=== PATIENT | male | born 1940 | race Caucasian/White ===

== ENCOUNTER 2020-04-08 16:58 | Inpatient (IN) | payer MEDICARE, OTHER ==
[~2020-04-08] VITALS: Ht 185.4 cm; Wt 102.4 kg
[~2020-04-08 16:58] MED LIST: BUME1 PO; FURO40 PO; LANS30EC PO; LISI5 PO; MELO7.5 PO; NEBI5 PO; OXYACE5T PO; POTCHL10ER PO; ROSU10TA PO; SENN187 PO; SENNA-S PO; TRIHYD5075 PO; [UNRECOGNIZED DRUG - REMARK]
[2020-04-08 17:43] LABS: BASOPHILS ABSOLUTE AUTO 0.03 K/mm3 (0.00-0.23); BASOPHILS PERCENT AUTO 0 % (0-2); EOSINOPHILS PERCENT AUTO 0 % (0-6); Hematocrit 51.5 % (37.0-53.0); Hemoglobin 16.5 g/dL (13.5-17.5); IMMATURE GRAN ABSOLUTE AUTO 0.22 K/mm3 (0.00-0.10); IMMATURE GRAN PERCENT AUTO 1 % (0-1); LYMPHOCYTES ABSOLUTE AUTO 0.27 K/mm3 (0.84-5.20); LYMPHOCYTES PERCENT AUTO 1 % (21-46); MONOCYTES ABSOLUTE AUTO 0.97 K/mm3 (0.16-1.47); MONOCYTES PERCENT AUTO 5 % (4-13); Mean Corpuscular HGB 28.3 pg (26.0-34.0); Mean Corpuscular Volume 88 fL (80-100); Mean Platelet Volume 12.8 fL (9.1-12.4); NEUTROPHILS ABSOLUTE AUTO 19.04 K/mm3 (1.96-9.15); NEUTROPHILS PERCENT AUTO 93 % (41-73); RDW Coefficient Variation 16.2 % (11.7-14.2); Red Blood Cell Count 5.84 M/mm3 (4.30-5.90); White Blood Cell Count 20.53 K/mm3 (4.00-11.30)
[2020-04-08 18:02] LABS: Platelet Count 78 K/mm3 (150-400)
[2020-04-08 18:06] LABS: International Normalized Ratio 1.11; Prothrombin Time Results 11.8 Sec (9.7-11.5)
[2020-04-08 18:11] LABS: Alanine Aminotransfer (ALT/SGP 507 U/L (12-78); Albumin, Blood 2.8 g/dL (3.4-5.0); Albumin/Globulin Ratio 0.7 (0.8-1.8); Alk Phos 417 U/L (50-136); Anion Gap 5 mmol/L (6-16); Aspartate Aminotrans (AST/SGOT 201 U/L (12-37); Bilirubin, Total 8.1 mg/dL (0.1-1.0); Blood Urea Nitrogen 49 mg/dL (8-24); CO2, Blood 39 mmol/L (21-32); Calcium, Blood 9.3 mg/dL (8.5-10.1); Chloride, Blood 96 mmol/L (98-108); Creatinine, Blood 1.09 mg/dL (0.60-1.20); Globulin, Blood 4.1 g/dL (2.2-4.0); Glomerular Filtration Rate >60 (60-); Glucose, Blood 171 mg/dL (70-99); Potassium, Blood 3.8 mmol/L (3.5-5.5); Sodium, Blood 140 mmol/L (136-145); Total Protein, Blood 6.9 g/dL (6.4-8.2); Troponin I 0.152 ng/mL (0.000-0.040)
[2020-04-08] MEDS ORDERED: CARVEDILOL12.5 MG PO (19:55)
[2020-04-08] MEDS ORDERED: HYDROCODONE-AC1 EAC1 PO (19:55)
[2020-04-08] MEDS ORDERED: GABA300 PO (20:00)
[2020-04-08] MEDS ORDERED: PANT20 PO (20:00)
[2020-04-08 20:19] LABS: PCO2 Arterial 57.6 mmHg (35-45); pH Blood Arterial 7.49 (7.35-7.45)
[2020-04-08 20:20] LABS: PO2 Arterial 48.4 mmHg (80-100)
--- NOTE | 2020-04-09 00:15 | NUR ---
PT ARRIVAL TO PCU 4 Pt arrived at 2311 via stretcher and required slide transfer. VSS. LLQ colostomy. urinal used at bedside. Dyspnea with standing at bedside during void. Tele showing afib in 60's. BLE edema present. Pt alert and oriented, speaking in full sentences, mildly labored breatihng at rest. Tachypneic. 2L oxygen upon arrival, saturations at 84% - NC increased to 4L with saturations at 92%. See admission assessment for detailed systems assessment. Consult for dr. blank called, to see pt today.
--- NOTE | 2020-04-09 02:15 | NUR ---
RT at bedside setting up CPAP.
--- NOTE | 2020-04-09 05:47 | NUR ---
Shift Summary Pt admitted this shift with resp failure. 4L NC maintain oxygen saturations 92-96%. VSS. Voiding independantly at edge of bed. Able to stand at bedside with assistance. Calls appropriately, alert and oriented. No confusion noted this shift. No changes to oxygen demand since admission. CPAP worn for approx 4 hours while asleep. Able to take pills whole with water. no dyspnea noted with eating. Echo planned for this AM. Dr. Hahn consulted. LLQ colostomy. No acute concerns overnight. Will continue to monitor.
[2020-04-09 06:00] LABS: BASOPHILS ABSOLUTE AUTO 0.03 K/mm3 (0.00-0.23); BASOPHILS PERCENT AUTO 0 % (0-2); EOSINOPHILS PERCENT AUTO 0 % (0-6); Hematocrit 50.4 % (37.0-53.0); Hemoglobin 16.2 g/dL (13.5-17.5); IMMATURE GRAN ABSOLUTE AUTO 0.16 K/mm3 (0.00-0.10); IMMATURE GRAN PERCENT AUTO 1 % (0-1); LYMPHOCYTES ABSOLUTE AUTO 0.33 K/mm3 (0.84-5.20); LYMPHOCYTES PERCENT AUTO 2 % (21-46); MONOCYTES ABSOLUTE AUTO 0.82 K/mm3 (0.16-1.47); MONOCYTES PERCENT AUTO 5 % (4-13); Mean Corpuscular HGB 28.8 pg (26.0-34.0); Mean Corpuscular HGB Conc 32.1 g/dL (31.5-36.5); Mean Corpuscular Volume 90 fL (80-100); NEUTROPHILS ABSOLUTE AUTO 16.73 K/mm3 (1.96-9.15); NEUTROPHILS PERCENT AUTO 93 % (41-73); Platelet Count 64 K/mm3 (150-400); RDW Coefficient Variation 16.4 % (11.7-14.2); RDW Standard Deviation 53.2 fL (35.1-46.3); Red Blood Cell Count 5.63 M/mm3 (4.30-5.90); White Blood Cell Count 18.07 K/mm3 (4.00-11.30)
[2020-04-09 06:14] LABS: International Normalized Ratio 1.08; Prothrombin Time Results 11.5 Sec (9.7-11.5)
[2020-04-09 06:30] LABS: Alanine Aminotransfer (ALT/SGP 461 U/L (12-78); Albumin, Blood 2.6 g/dL (3.4-5.0); Albumin/Globulin Ratio 0.7 (0.8-1.8); Alk Phos 372 U/L (50-136); Anion Gap 6 mmol/L (6-16); Aspartate Aminotrans (AST/SGOT 169 U/L (12-37); Bilirubin, Total 7.8 mg/dL (0.1-1.0); Blood Urea Nitrogen 41 mg/dL (8-24); CO2, Blood 40 mmol/L (21-32); Calcium, Blood 8.9 mg/dL (8.5-10.1); Chloride, Blood 96 mmol/L (98-108); Creatinine, Blood 1.05 mg/dL (0.60-1.20); Globulin, Blood 3.6 g/dL (2.2-4.0); Glomerular Filtration Rate >60 (60-); Glucose, Blood 151 mg/dL (70-99); Magnesium, Blood 2.8 mg/dL (1.6-2.4); Potassium, Blood 2.7 mmol/L (3.5-5.5); Sodium, Blood 142 mmol/L (136-145); Total Protein, Blood 6.2 g/dL (6.4-8.2); Troponin I 0.123 ng/mL (0.000-0.040)
--- NOTE | 2020-04-09 09:00 | NUR ---
Echocardiogram in progress at this time. Dr. Garcia was here, but said to call when the echo is completed to let him know when he can come and talk with the patient.
--- NOTE | 2020-04-09 10:11 | NUR ---
Echocardiogram completed.
[2020-04-09 14:32] LABS: Alpha Feto Protein, Tumor Mkr 1.8 ng/mL (0.0-8.0)
[2020-04-09 14:49] LABS: Cancer Antigen 19-9 5487.4 U/mL (2.0-37.0); Carcinoembryonic Antigen 1785.8 ng/mL (0.0-3.0)
--- NOTE | 2020-04-09 15:02 | NUR ---
Supportive therapeutic visit this afternoon. Pt resting in bed and is A&O. Pt denies pain and nausea at this time. Pt reports significant anxiety due to findings. Pt reports speaking with his but would like Dr Hahn to call and speak with . Instructed Pt request will be relayed to Dr Hahn. Offered therapeutic listening with Pt somewhat withdrawn. Pt briefly discusses some likes such as watching the [employer] channel and NASCAR. Educated Pt on distraction techniques to help manage anxiety. RT Mary in to offer breathing treatment. Pt agreeable to continued visits from Palliative Care. Spoke with Bedside RN Betzy and discussed case. CT guided biopsy planned for tomorrow. Palliative Care will remain available.
--- NOTE | 2020-04-09 17:25 | NUR ---
The pt is sitting on the side of the bed, feet on the floor, eating his dinner. States this will be enough food for him. Vital signs taken, and noted. The pt has no complaints at this time. He was given his coreg. Will wait for administration of lasix until he has finished eating. Occasional productive cough noted. Spo2 93 % while eating on 6 l/min O2 delivery.
--- NOTE | 2020-04-09 17:54 | NUR ---
SUMMARY The pt has been mostly resting in bed today, with brief times of sitting on the side of the bed. He was seen by Dr. Garcia and Dr. Hahn today. Plan is for ongoing tests tomorrow. The pt seems withdrawn, grumpy, and somewhat apathetic about his diagnosis, treatment, and care during the day.
[2020-04-10 04:42] LABS: BASOPHILS ABSOLUTE AUTO 0.03 K/mm3 (0.00-0.23); BASOPHILS PERCENT AUTO 0 % (0-2); EOSINOPHILS PERCENT AUTO 0 % (0-6); Hematocrit 49.2 % (37.0-53.0); Hemoglobin 15.9 g/dL (13.5-17.5); IMMATURE GRAN ABSOLUTE AUTO 0.17 K/mm3 (0.00-0.10); IMMATURE GRAN PERCENT AUTO 1 % (0-1); LYMPHOCYTES ABSOLUTE AUTO 0.29 K/mm3 (0.84-5.20); LYMPHOCYTES PERCENT AUTO 2 % (21-46); MONOCYTES ABSOLUTE AUTO 0.81 K/mm3 (0.16-1.47); MONOCYTES PERCENT AUTO 5 % (4-13); Mean Corpuscular HGB 28.9 pg (26.0-34.0); Mean Corpuscular HGB Conc 32.3 g/dL (31.5-36.5); Mean Corpuscular Volume 90 fL (80-100); NEUTROPHILS ABSOLUTE AUTO 16.15 K/mm3 (1.96-9.15); NEUTROPHILS PERCENT AUTO 93 % (41-73); Platelet Count 64 K/mm3 (150-400); RDW Coefficient Variation 16.6 % (11.7-14.2); RDW Standard Deviation 53.2 fL (35.1-46.3); White Blood Cell Count 17.45 K/mm3 (4.00-11.30)
[2020-04-10 04:51] LABS: Mean Platelet Volume 12.9 fL (9.1-12.4)
[2020-04-10 05:01] LABS: Alanine Aminotransfer (ALT/SGP 410 U/L (12-78); Albumin, Blood 2.4 g/dL (3.4-5.0); Albumin/Globulin Ratio 0.7 (0.8-1.8); Alk Phos 347 U/L (50-136); Aspartate Aminotrans (AST/SGOT 141 U/L (12-37); Bilirubin, Total 8.1 mg/dL (0.1-1.0); Blood Urea Nitrogen 40 mg/dL (8-24); Bun/Creatinine Ratio 38.5 (12.0-20.0); Calcium, Blood 8.8 mg/dL (8.5-10.1); Chloride, Blood 96 mmol/L (98-108); Creatinine, Blood 1.04 mg/dL (0.60-1.20); Globulin, Blood 3.5 g/dL (2.2-4.0); Glomerular Filtration Rate >60 (60-); Glucose, Blood 149 mg/dL (70-99); Potassium, Blood 2.6 mmol/L (3.5-5.5); Sodium, Blood 145 mmol/L (136-145); Total Protein, Blood 5.9 g/dL (6.4-8.2)
[2020-04-10 05:03] LABS: International Normalized Ratio 1.09; Prothrombin Time Results 11.6 Sec (9.7-11.5)
[2020-04-10 05:39] LABS: Anion Gap Unable to Calculate mmol/L (6-16); CO2, Blood >45 mmol/L (21-32)
--- NOTE | 2020-04-10 05:49 | NUR ---
SHIFT SUMMARY Pt able to sleep approx 7hrs this shift, fatigued upon initial assessment but fully alert and oriented. Withdrawn and appeared downcast. takes pills whole with water one at a time. VSS throughout shift, no acute declines to note. Pt mentation remains unchanged from initial assessment. See shift assessment for detailed systems assessment. Pt with critically high Co2 at >45 this shift, called to Provider and awaiting call back at this time. K+ also 2.6 this AM, awaiting call back from provider to relay lab results. No call back at this time. Pt with colostomy to [facility], managed by staff this shift. Plan is for CT guided liver bx and head CT this shift. Pt aware of plan of care.
--- NOTE | 2020-04-10 08:00 | NUR ---
PT LAYING IN BED AWAKE A/OX3, FLAT AFFECT, DENIES PAIN AT THIS TIME, LUNGS ARE CLEAR IN UPPER VIVAR, COURSE, CRACKLES OCC WHEEZE IN BASES, RESP EVEN AND UNLABORED, NO COUGH NOTED, HRIRR, TELE IN PLACE RUNNING AFIB PER MONITOR, SEE STRIP, NO EDEMA NOTED, PPP+1, CAP REFILL <3SEC, VS STABLE, AFEBRILE, IV SITE IS CLEAR AND PATENT, BTX4, ABD FLAT SOFT NONTENDER, OSTOMY NOTED TO LUQ, PT TAKES CARE OF IT HIMSELF, VOIDS VIA URINAL, SKIN C/W/D, NAFISA, CARLOS MANUEL, DONA, CALL LIGHT IN REACH, WILL BE HAVING A CT GUIDED LIVER BIOPSY TODAY, WILL KEEP HIM NPO, CALL LIGHT IN REACH.
[2020-04-10 10:52] LABS: Bilirubin, Direct 7.5 mg/dL (0.0-0.3); Bilirubin, Total 9.5 mg/dL (0.1-1.0)
--- NOTE | 2020-04-10 11:10 | NUR ---
PT LEFT FOR CT PROCEDURE VIA GURNEY, HE IS MEDIAL STATUS AND WILL BE TRANSFERED TO [facility] FROM CT, REPORT WAS GIVEN TO ROSCOE FELIZ. ALL BELONGINGS WERE TAKEN TO NEW ROOM.
--- NOTE | 2020-04-10 12:10 | NUR ---
PATIENT ARRIVED FROM CT SCAN/PCU AT 1150, TRANSFERRED TO BED WITHOUT INCIDENT. DENIES PAIN. HAS BAND AID COVERING PUNCTURE SITE ON RUQ FROM LIVER BIOPSY, NO BLEEDING OR HEMATOMA NOTED. ON O2 @ 5 L/MIN NC, RR 24-28 AND SHALLOW, O2 SAT 90-92%. PLACED ON MECHANICS HANDYMAN, BOX VERIFIED WITH PCU INSTRUMENT ASSEMBLY SUPERVISOR, IS IN AFIB WITH RATE OF 92. HE IS IRRITABLE, DOES NOT LIKE TO BE FUSSED OVER. REINFORCED EDUCATION TRUCK GUARD LIGHT USE, FALL PREVENTION, PRESSURE ULCER PREVENTION, AND PAIN MANAGEMENT.
--- NOTE | 2020-04-10 15:10 | NUR ---
SPOKE TO PATIENT'S BY PHONE, GAVE UPDATE ON PT LOCATION SINCE TRANSFER FROM PCU AND CONDITION. REQUESTED THAT SHE BRING HEARING AID BATTERIES FOR PT AND HIS CELL PHONE WITH LIVESTOCK HANDLER AND GAVE DIRECTIONS ON HOW TO DROP ITEMS OFF.
--- NOTE | 2020-04-10 18:44 | NUR ---
SHIFT SUMMARY: PT IRRITABLE AND SLIGHTLY ANXIOUS. WENT FOR NON CONTRAST MRI OF ABDOMEN. DENIES PAIN, BUT IS CLEARLY UNCOMFORTABLE. O2 @ 5 L/MIN NC, HUMIDIFIED, OSHEA. COLOSTOMY WITH BROWN STOOL AND GAS IN BAG. TRANSFERRED FROM [facility] TO BED WITH FWW AND SBA. POOR APPETITE, IS TOLERATING PO INTAKE, DENIES N/V. USING URINAL WITH ASSISTANCE.
[2020-04-11 08:34] LABS: Hemoglobin 15.7 g/dL (13.5-17.5); Mean Corpuscular HGB 28.8 pg (26.0-34.0); Mean Corpuscular HGB Conc 32.7 g/dL (31.5-36.5); Mean Corpuscular Volume 88 fL (80-100); Platelet Count 68 K/mm3 (150-400); RDW Coefficient Variation 17.1 % (11.7-14.2); RDW Standard Deviation 53.1 fL (35.1-46.3); Red Blood Cell Count 5.45 M/mm3 (4.30-5.90); White Blood Cell Count 18.21 K/mm3 (4.00-11.30)
[2020-04-11 08:41] LABS: Mean Platelet Volume 13.7 fL (9.1-12.4)
[2020-04-11 08:58] LABS: Alanine Aminotransfer (ALT/SGP 404 U/L (12-78); Albumin, Blood 2.4 g/dL (3.4-5.0); Albumin/Globulin Ratio 0.7 (0.8-1.8); Alk Phos 359 U/L (50-136); Anion Gap 6 mmol/L (6-16); Aspartate Aminotrans (AST/SGOT 157 U/L (12-37); Bilirubin, Total 11.3 mg/dL (0.1-1.0); Blood Urea Nitrogen 44 mg/dL (8-24); Bun/Creatinine Ratio 43.1 (12.0-20.0); CO2, Blood 41 mmol/L (21-32); Calcium, Blood 9.1 mg/dL (8.5-10.1); Chloride, Blood 94 mmol/L (98-108); Creatinine, Blood 1.02 mg/dL (0.60-1.20); Globulin, Blood 3.5 g/dL (2.2-4.0); Glomerular Filtration Rate >60 (60-); Glucose, Blood 153 mg/dL (70-99); Potassium, Blood 3.3 mmol/L (3.5-5.5); Sodium, Blood 141 mmol/L (136-145); Total Protein, Blood 5.9 g/dL (6.4-8.2)
--- NOTE | 2020-04-11 18:22 | NUR ---
SHIFT SUMMARY PT AXO, COOPERATIVE WITH CARE THOUGH WITHDRAWN. WHEN ASKED HOW HE IS FEELING HE JUST SHRUGS HIS SHOULDERS. FLAT AFFECT. VSS. PT 96% ON 6L, TITRATED TO 5L. DENIES PAIN. UP TO RECLINER THROUGHOUT THE DAY AND SLEEPING OFF AND ON. PT DENIES NEEDS THROUGHOUT THE DAY. [facility] [employer] CNA HELPED PT TO "BURP" COLOSTOMY BAG WHICH FILLED WITH GAS. BED IN LOW POSITION, CALL LIGHT WITHIN REACH. THIS NURSE CALLED PALLIATIVE CARE WHO WILL ASSESS PATIENT TOMORROW. NO OTHER CHANGES THIS SHIFT.
--- NOTE | 2020-04-12 02:10 | NUR ---
LATE PULLER MACHINE SUMMARY FOR 04/10 NIGHTSHIFT Patient continues to be withdawn and appears depressed. Not interested in discussing concerns about evolving health issues. minimal complaints of discomfort. Calls appropriately, OOB with one assist to bathroom. Urine extremely dark. (cola colored) Stool in colostomy was very pasty..Abd distended and firm with tympanic bowel sounds X4. Patient began to warm to staff in AM after considerable gentle emotional support.
[2020-04-12 05:10] LABS: BASOPHILS ABSOLUTE AUTO 0.03 K/mm3 (0.00-0.23); BASOPHILS PERCENT AUTO 0 % (0-2); EOSINOPHILS PERCENT AUTO 0 % (0-6); Hematocrit 46.1 % (37.0-53.0); Hemoglobin 15.3 g/dL (13.5-17.5); IMMATURE GRAN PERCENT AUTO 1 % (0-1); LYMPHOCYTES PERCENT AUTO 1 % (21-46); MONOCYTES ABSOLUTE AUTO 0.92 K/mm3 (0.16-1.47); MONOCYTES PERCENT AUTO 6 % (4-13); Mean Corpuscular HGB 29.2 pg (26.0-34.0); Mean Corpuscular HGB Conc 33.2 g/dL (31.5-36.5); Mean Corpuscular Volume 88 fL (80-100); NEUTROPHILS ABSOLUTE AUTO 15.48 K/mm3 (1.96-9.15); NEUTROPHILS PERCENT AUTO 92 % (41-73); Platelet Count 60 K/mm3 (150-400); RDW Coefficient Variation 17.1 % (11.7-14.2); RDW Standard Deviation 53.8 fL (35.1-46.3); Red Blood Cell Count 5.24 M/mm3 (4.30-5.90); White Blood Cell Count 16.83 K/mm3 (4.00-11.30)
[2020-04-12 05:14] LABS: Mean Platelet Volume 12.5 fL (9.1-12.4)
[2020-04-12 05:32] LABS: Alanine Aminotransfer (ALT/SGP 379 U/L (12-78); Albumin, Blood 2.2 g/dL (3.4-5.0); Albumin/Globulin Ratio 0.7 (0.8-1.8); Alk Phos 326 U/L (50-136); Anion Gap 4 mmol/L (6-16); Aspartate Aminotrans (AST/SGOT 158 U/L (12-37); Bilirubin, Total 11.7 mg/dL (0.1-1.0); Blood Urea Nitrogen 49 mg/dL (8-24); Bun/Creatinine Ratio 46.7 (12.0-20.0); CO2, Blood 42 mmol/L (21-32); Calcium, Blood 8.7 mg/dL (8.5-10.1); Chloride, Blood 96 mmol/L (98-108); Creatinine, Blood 1.05 mg/dL (0.60-1.20); Globulin, Blood 3.3 g/dL (2.2-4.0); Glomerular Filtration Rate >60 (60-); Glucose, Blood 162 mg/dL (70-99); Potassium, Blood 3.3 mmol/L (3.5-5.5); Sodium, Blood 142 mmol/L (136-145); Total Protein, Blood 5.5 g/dL (6.4-8.2)
--- NOTE | 2020-04-12 08:59 | NUR ---
PT HAD A CARTON OF CHOCOLATE MILK ON HIS TRAY TABLE FROM THE NIGHT BEFORE. NURSE PICKED IT UP TO THROW IT AWAY AND PATIENT DEMANDED IT BACK, OPENED AND DRANK IT DEPITE NURSE EDUCATING PATIENT ABOUT RISKS OF DRINKING MILK THAT HAS BEEN SITTING OUT ALL NIGHT AT ROOM TEMP. PT UPSET WITH MORNING MEDICATIONS, SEE EMAR. THIS NURSE EDUCATED PT THAT HE WAS MEDICATED THIS MORNING AT 0724 WITH HIS PROTONIX. THE MEDICATION THAT I WAS GIVING WAS HIS COREG. . THIS NURSE LET PATIENT DECIDE IF HE WANTED TO TAKE IT OR NOT. PT AGREED TO TAKE THE MEDICATION. HOWEVER, PT CLEARLY UPSET WITH NURSE IN ROOM. THIS NURSE LEFT ROOM TO LET PATIENT HAVE A BREAK. THIS NURSE CALLED PALLIATIVE CARE, NO ANSWER
--- NOTE | 2020-04-12 12:07 | NUR ---
Clinical Visit: Pt is alert, oriented, agitated. He is annoyed during my visit in the room. He reports that he just wants to go home. Attempted to speak to him about his serious illness and planning in advance. Reviewed code status, he states that he has had CPR in the past. He refuses to speak more about code status, stating again that he wants his and he wants to go home. Call placed to Savita. She states that his behavior is consistent with how he is at home. She reports that it is "just like him" to refuse to answer serious questions regarding his health and that they have always made decisions together. She is willing to come in to the hospital today so that they can have a discussion. Call down to tent to arrange admission into the hospital for advanced care planning. Updated nurse. Savita will ask for palliative care when she arrives.
--- NOTE | 2020-04-12 16:00 | NUR ---
is at bedside. Condition briefly covered, but she is requesting to speak with the hospitalist. Call to Dr. Garcia to notify. He will come to the room.
--- NOTE | 2020-04-12 18:22 | NUR ---
SHIFT SUMMARY PT AXO TO SELF, FOLLOW DIRECTIONS AND SURROUNDINGS THOUGH FORGETFUL AND IRRITABLE. PT BECAME AGGITATED WITH NURSE EVERY TIME NURSE WAS IN ROOM. PALLIATIVE CARE IN ROOM, SEE NOTE. PT CODE STATUS NOW DNR, BAND IN PLACE. AFIB ON TELE. PT'S SPOUSE IN ROOM THIS SHIFT TO DISCUSS PLAN WITH DR. DRIVER. PT LESS IRRITABLE AFTER SPOUSE VISIT. BED IN LOW POSITION, CALL LIGHT WITHIN REACH. NO OTHER CHANGES THIS SHIFT. PT EXTREMELY EAGER TO BE DISCHARGED HOME. PT 92% ON 5L AT THIS TIME.
[2020-04-13 04:55] LABS: BASOPHILS ABSOLUTE AUTO 0.03 K/mm3 (0.00-0.23); BASOPHILS PERCENT AUTO 0 % (0-2); EOSINOPHILS PERCENT AUTO 0 % (0-6); Hematocrit 46.6 % (37.0-53.0); Hemoglobin 15.3 g/dL (13.5-17.5); IMMATURE GRAN ABSOLUTE AUTO 0.23 K/mm3 (0.00-0.10); IMMATURE GRAN PERCENT AUTO 1 % (0-1); LYMPHOCYTES ABSOLUTE AUTO 0.23 K/mm3 (0.84-5.20); LYMPHOCYTES PERCENT AUTO 1 % (21-46); MONOCYTES ABSOLUTE AUTO 0.97 K/mm3 (0.16-1.47); MONOCYTES PERCENT AUTO 6 % (4-13); Mean Corpuscular HGB 28.4 pg (26.0-34.0); Mean Corpuscular HGB Conc 32.8 g/dL (31.5-36.5); Mean Corpuscular Volume 87 fL (80-100); NEUTROPHILS ABSOLUTE AUTO 15.51 K/mm3 (1.96-9.15); NEUTROPHILS PERCENT AUTO 91 % (41-73); Platelet Count 62 K/mm3 (150-400); RDW Coefficient Variation 18.1 % (11.7-14.2); RDW Standard Deviation 53.9 fL (35.1-46.3); Red Blood Cell Count 5.39 M/mm3 (4.30-5.90); White Blood Cell Count 16.97 K/mm3 (4.00-11.30)
[2020-04-13 05:13] LABS: Alanine Aminotransfer (ALT/SGP 399 U/L (12-78); Albumin, Blood 2.3 g/dL (3.4-5.0); Albumin/Globulin Ratio 0.7 (0.8-1.8); Alk Phos 343 U/L (50-136); Anion Gap 2 mmol/L (6-16); Aspartate Aminotrans (AST/SGOT 168 U/L (12-37); Bilirubin, Total 15.5 mg/dL (0.1-1.0); Blood Urea Nitrogen 48 mg/dL (8-24); CO2, Blood 41 mmol/L (21-32); Calcium, Blood 8.7 mg/dL (8.5-10.1); Chloride, Blood 95 mmol/L (98-108); Globulin, Blood 3.2 g/dL (2.2-4.0); Glomerular Filtration Rate >60 (60-); Glucose, Blood 159 mg/dL (70-99); Potassium, Blood 3.7 mmol/L (3.5-5.5); Sodium, Blood 138 mmol/L (136-145); Total Protein, Blood 5.5 g/dL (6.4-8.2)
[2020-04-13 05:31] LABS: Mean Platelet Volume 13.9 fL (9.1-12.4)
--- NOTE | 2020-04-13 06:12 | NUR ---
FUR TRIMMER SUMMARY Patient once again very somnolent overnight with the exception of his getting oob once to side of bed, then assisted to lay back down again, and the second time all the way out of bed into recliner (2 feet away) removed his tele and gown, pulled iv and was totally confused as to location, situation or wherabouts of spouse. Patient was very cooperative with staff who changed his brief and bedding, and helped him get comfortably into bed. After that, patient slept soundly overnight. Colostomy draining brown liquid stool and still producing lots of gas,
[2020-04-13] MEDS ORDERED: Duoneb 2.5-0.5 M3 ML INH (09:15)
[2020-04-13] MEDS ORDERED: VISBIOME 112.51 EACH PO (09:15)
[2020-04-13] MEDS ORDERED: CEFP200 PO (09:16)
--- NOTE | 2020-04-13 18:29 | NUR ---
PATIENT DISCHARGE: PATIENT DISCHARGED TO HOME / XFR TO HOME HEALTH THIS SHIFT. MEDICATION RECONCILIATION COMPLETED; [facility] DISCHARGE EDUCATION COMPLETED WITH PATIENT. O2 @ 6L PROVIDED BY [facility]. PATIENT TRANSPORTED TO EXIT BY [facility] STAFF WITH WHEELCHAIR AT 1823. PATIENT DEPARTED [facility] VIA PRIVATE AUTO.
== END 2020-04-13 18:23 | disposition home health service (06) | DRG 871 ==
LOC: ER 16:58 → PCU 22:47 → MEDS 04-10 11:14 → ENPENDDIS 04-13 08:48 → MEDS 04-13 18:23
PROVIDERS: Emergency Medicine; Hospitalist; Internal Medicine Hematology & Oncology; Nurse Practitioner Acute Care; Physician Assistant; ADMIT Internal Medicine
DX: A41.9 Sepsis, unspecified organism (principal); J18.9 Pneumonia, unspecified organism; J96.01 Acute respiratory failure with hypoxia; C77.1 Secondary and unspecified malignant neoplasm of intrathoracic lymph nodes; C78.7 Secondary malignant neoplasm of liver and intrahepatic bile duct; C78.5 Secondary malignant neoplasm of large intestine and rectum; R74.0 Nonspecific elevation of levels of transaminase and lactic acid dehydrogenase [LDH]; I48.0 Paroxysmal atrial fibrillation; G47.33 Obstructive sleep apnea (adult) (pediatric); J44.9 Chronic obstructive pulmonary disease, unspecified; I10 Essential (primary) hypertension; I25.10 Atherosclerotic heart disease of native coronary artery without angina pectoris; E78.5 Hyperlipidemia, unspecified; K21.9 Gastro-esophageal reflux disease without esophagitis; D69.6 Thrombocytopenia, unspecified; K80.50 Calculus of bile duct without cholangitis or cholecystitis without obstruction; Z66 Do not resuscitate; Z95.1 Presence of aortocoronary bypass graft; Z85.038 Personal history of other malignant neoplasm of large intestine; Z86.718 Personal history of other venous thrombosis and embolism; Z87.891 Personal history of nicotine dependence
CPT/HCPCS: 36415; 36600; 47000; 70470; 71045; 71260; 74177; 74181; 76705; 77012; 80053; 82105; 82247; 82248; 82378; 82803; 83605; 83690; 83735; 83880; 84145; 84484; 85025; 85027; 85610; 85730; 86301; 86304; 87040; 93005; 93010; 93306; 94640; 94660; 94761; 94762; 96365; 96367; 97163; 99285-25; C9113; G0103; J0456; J0696; J1940; J2543; J3480; J7050; Q9967